=== PATIENT | female | born 2000 | race Caucasian/White ===

== ENCOUNTER 2025-07-26 20:48 | Emergency (ER) | payer OTHER, SELFPAY ==
--- NOTE | ~2025-07-26 | XR_ITS ---
CLINICAL HISTORY: constipation w abdominal pain 1 view abdomen Comparison: None provided Findings: Large volume stool burden. No pneumatosis. No abnormal calcifications. IUD projects over the pelvis. No acute fractures. IMPRESSION: Nonobstructive bowel gas pattern. Large stool burden in the colon. This document has been electronically signed by: Pat Hyman MD on 07/26/2025 21:40:55
[2025-07-26 20:57] VITALS: BP 131/76; PULSE 102; RESP 16; TEMP 36.4; O2SAT 100; BMI 19.4
[2025-07-26 22:02] LABS: MANUAL DIFF FLAG NO
[2025-07-26 22:03] LABS: Hematocrit 37.4 % (37.0-47.0); Hemoglobin 12.9 g/dl (12.0-16.0); Imm Gran Abs Auto 0.04 X10*3/uL (0.00-0.03); Imm Gran Pct Auto 0.3 % (0.0-0.4); Lymphocytes Absolute Auto 3.4 X10*3/uL (1.2-4.9); Mean Corpuscular HGB Conc 34.5 g/dl (31.0-35.0); Mean Corpuscular Hemoglobin 31.2 pg (27.0-33.0); Mean Corpuscular Volume 90.3 fL (80.0-98.0); NRBC Abs Auto 0.000 X10*3/uL (0.0-0.012); NRBC Pct Auto 0.0 /100WBC (0.0-0.2); Platelet Count 292 X10*3/uL (160-400); Red Blood Count 4.14 X10*6/uL (4.20-5.50); White Blood Count 12.4 X10*3/uL (4.8-10.8)
[2025-07-26 22:04] LABS: Appearance Urine Clear; Glucose Urine UA Negative (Negative); PH 6.5 (5.0-9.0); Specific Gravity - Urine 1.015 (1.005-1.025)
[2025-07-26 22:09] LABS: UPreg QC Valid YES
[2025-07-26 22:22] LABS: Alanine Aminotransferase 21 U/L (0-31); Albumin Level 4.3 g/dL (3.5-5.0); Alkaline Phosphatase 60 U/L (39-117); Anion Gap 9 (12-20); Aspartate Amino Transferase 28 U/L (5-31); Blood Urea Nitrogen 13 mg/dL (9-16); Calcium 8.7 mg/dL (8.4-10.2); Carbon Dioxide 24 mmol/L (22-29); Chloride 109 mmol/L (96-108); Creatinine Clr Calc Pharmacy 74.7; Estimated Glomerular Filt Rate > 60; Lipase 30 U/L (8-78); Potassium 3.9 mmol/L (3.3-5.1); Sodium 138 mmol/L (135-145); Total Protein 6.9 g/dL (6.5-8.0)
[2025-07-27 04:21] VITALS: BP 107/63; PULSE 66; RESP 16; TEMP 36.8; O2SAT 99
--- OUTSIDE RECORDS SUMMARY | 2025-07-27 05:35 | XMS_ITS | Clinical Summary ---
Author Organization [address] Address [address] [place] [address] Phone Care Team Providers Care Hand Sprayer Name Role Phone Pcp, Does Not Have A Primary Care Provider Unava ilable Allergies No known active allergies Medications naloxone (NARCAN) 4 mg/actuation nasal spray Use 1 spray in 1 nostril for suspected opioid overdose. May repeat in 2 minutes in other nostril with new device if minimal or no response. Dispensed from Emergency Department 2 each 4 Active loperamide (IMODIUM) 2 mg capsule Take 1 capsule (2 mg total) by mouth 4 (four) times daily as needed for diarrhea for up to 15 doses. 15 capsule 4 Active naloxone (NARCAN) 4 mg/actuation nasal spray Use 1 spray in 1 nostril for suspected opioid overdose. May repeat in 2 minutes in other nostril with new device if minimal or no response. 2 each 4 Active gabapentin (NEURONTIN) 600 mg tablet Take 1 tablet (600 mg total) by mouth 3 (three) times daily with meals for 7 days. 21 tablet 4 Active Active Problems Problem Noted Date Diagnosed Date Benzodiazepine withdrawal without complication ( HC Code) 06/20/2024 Methamphetamine abuse 06/11/2024 Crack cocaine use 06/11/2024 Suicidal ideation 12/26/2021 Substance induced mood disorder (HC Code) 2020 Alcohol abuse 11/28/2020 Polysubstance abuse 11/28/2020 Cannabis abuse 11/28/2020 Anxiety 04/20/2020 Family History Medical History Relation Name Comments No Known Problems Father No Known Problems Mother Suicide Attempts Neg Hx Relation Name Status Comments Father Alive Mother Alive Social History Tobacco Use Types Packs/Day Years Used Date Smoking Tobacco: Some Days Cigarettes Smokeless Tobacco: Current Tobacco Cessation:Ready to Q uit: No; Counseling Given: Yes Alcohol Use Standard Drinks/Week Comments Yes 0 (1 standard drink = 0.6 oz pur e alcohol) regular use [facility] Utilities Answer Date Recorded In the past 12 months has e electric, gas, oil, or water company threatened to shut off services in your home? No 01/29/2024 Exercise Vital Sign Answer Date Recorde d On average, how many days pe r week do you engage in moderate to strenuous exercise (like a brisk walk)? 1 day Minutes of Exercise per Session Not on file 11/28/2020 Hunger Vital Sign Answer Date Recorded Within the past 12 months, y ou worried that your food would run out before you got the money to buy more. Never true 01/29/20 24 Within the past 12 months, t he food you bought just didn't last and you didn't have money to get more. Never true 01/29/2024 PRAPARE - Transportation Answer Date Re corded In the past 12 months, has l ack of transportation kept you from medical appointments or from getting medications? No 01/16 In the past 12 months, has l ack of transportation kept you from meetings, work, or from getting things needed for daily living? No 01/29/2024 Housing Stability Answer Date Recorded What is your living situation today? I have a [facility] place to live 01/29/2024 Housing Stability Not on file 01/29/2024 Interpersonal Safety Answer Date Record ed Is there anyone in your life that is hurting or threatening you in anyway? no 06/20/2024 Physical Indicators of Abuse No evidence of phys ical abuse 06/20/2024 Comments No Sex and Gender Information Value Date Recorded Sex Assigned at Female 02/05/2024 10:33 PM EDT Legal Sex Female 9:42 AM EST Gender Identity Female 02/05/2024 10:33 PM EDT Sexual Orientation Not on file Occupation Industry Job Start Date Job End Date student Not on file Not on file Not on file Last Filed Vital Signs Vital Sign Reading Time Taken Comments Blood Pressure 105/71 06/22/2024 8:40 AM EST Pulse 52 06/22/2024 8:40 AM EST Temperature 36.6 C (97.9 F) 06/22/2024 8:14 AM EST Respiratory Rate 16 06/22/2024 8:14 AM EST Oxygen Saturation 100% 06/22/2024 8:39 AM EST Inhaled Oxygen Concentration - - Weight 52.2 kg (115 lb) 05/02/2024 2:13 PM EDT Height 160 cm (5' 3 ) 05/02/2024 2:13 PM EDT Body Mass Index 20.37 05/02/2024 2:13 PM EDT Plan of Treatment Health Maintenance Due Date Last Done Comments Pneumococcal Vaccine (2 - 49 years) (1 of 2 - PCV) 12/05/2019 03/29/2002, 08/21/2001, 05/04/2001, Additional history exists Chlamydia screening 04/20/2021 04/20/2020 Influenza vaccine 03/18/2025 08/23/2020 Covid-19 vaccine series (2024- season) 2025 10/19/2021, 03/13/2021, 02/20/2021 Cervical cancer screening 12/15/2026 12/16/2023 DTaP/TDaP Vaccines (8 - Td or Tdap) 08/16/2030 08/16/2020, 04/24/2011, 02/26/2006, Additional history exists Tetanus adult (Td q 10,TDAP once) 08/16/2030 08/16/2020, 04/24/2011, 02/26/2006, Additional history exists RSV Immunization (1 - 1-dose 75+ series) 12/05/2075 Hepatitis B vaccine series Completed 08/03, 03/03/2001, 01/06/2001 IPV Vaccines Completed 02/26/2005, 08/18, 05/04/2001, Additional history exists MMR Vaccines Completed 02/26/2005, 12/09/2001 Varicella Vaccines Completed 03/17/2007, 12/09/2001 Hepatitis A Vaccines Completed 05/19/2013, 08/12/20 12 Meningococcal Vaccine Completed 12/09/2016, 012 HPV vaccine series Completed 07/18/2017, 0 03/18/2017, 12/21/2016 Meningococcal B Vaccine Completed 03/17/2019, 01/29 HIV screening Completed 01/29/2024 Hepatitis C screening Completed 06/22/2024 HIB Vaccines Aged Out No longer eligi ble based on patient's age to complete this topic Rotavirus Vaccines Aged Out No longer eligible based on patient's age to complete this topic Procedures Procedure Name Priority Date/Time Associated Diagnosis Comments HEPATITIS C AB WITH REFLEX TO HCV PCR Routine 06/22/2024 5:39 AM EST HIV-1/HIV-2 ANTIBODY/ANTIGEN SCREEN W/REFLEX ([facility]) STAT 01/29/2024 12:37 PM EDT CHLAMYDIA TRACHOMATIS, NAAT (LAB ORDER ONLY) ([facility]) Routine 04/20/2020 10:22 AM EDT Abnormal uterine bleeding (AUB) from Last 3 Months or Most Recently Relevant to Health Maintenance Results * Hepatitis C Ab with reflex to HCV PCR (06/22/2024 5:39 AM EST) Hepatitis C Antibody Negative Negative 06/22/2024 10:39 AM EST [facility] DEPARTMENT OF LABORATORY MEDICINE Comment:A negative result do es not exclude HCV infection, since antibodies are not detectable for 4-8 weeks after initial infection, or may not develop in compromised hosts. In high-risk individuals, repeat antibody testing in 2 months and/or HCV RNA PCR should be considered. Blood Venipuncture / Unknown 06/22/2024 5:39 AM EST 06/22/2024 6:46 AM EST us Laila GUEVARA LAB BLOOD ORDERABLES Final Re sult [facility] DEPARTMENT OF LABORATORY MEDICINE [address] [place] [address], [facility] [phone] * Automated HIV-1/HIV-2 antibody/antigen screen w/reflex ([facility]) (01/29/2024 12:37 PM EDT) HIV 1 and 2 Antibody/Antigen Screen Negative Negative 01/29/2024 8:10 PM EDT [facility] DEPARTMENT OF LABORATORY MEDICINE Comment:Interpretation: This specimen is HIV antibody and antigen negative. A negative test does not exclude the possibility of infection with HIV. If suspicion is high, submit a sample for HIV nucleic acid testing. Negative results may be seen in early infection, advanced AIDS and agammaglobulinemic patients, among others. Antiretroviral drugs taken for treatment and prophylaxis may limit the ability of diagnostic tests to detect HIV infection. The performance of this assay has not been clinically validated in patients less than 2 years old. Blood Venipuncture / Unknown 01/29/2024 12:37 PM EDT 01/29/2024 12:43 PM EDT us Eric Berg MD LAB BLOOD ORDERABLES Final Resul t [facility] DEPARTMENT OF LABORATORY MEDICINE [address] [place] [address] * Chlamydia trachomatis, NAAT ([facility]) (04/20/2020 10:22 AM EDT) Chlamydia DNA Probe Negative Negative 04/21/2020 12:22 PM EDT [facility] DEPARTMENT OF PATHOLOGY Comment:The Aptima Combo2 As say is not intended for the evaluation of suspected sexual abuse or for other medico-legal indications. Culture URINE SPECIMEN / Unknown Collection / Unknown 04/20/2020 10:22 AM EDT 04/20/2020 5:34 PM EDT us Yue Couch MD MICROBIOLOGY - GENERAL V[place]K [place] Final Result [facility] DEPARTMENT OF PATHOLOGY [address] [place] [address] from Last 3 Months or Most Recently Relevant to Health Maintenance Insurance [place] [address] [place] [address] [place] [address] [place] [address] [place] [address] [place] [address] [place] [address] [employer] Member Subscriber Plan / Payer (Ef fective 2017-Present) Name:Ruthann Bah Relation to Subscriber:Child Name:LANDON BAH (Home) Address: [address] [place] [address] [place] [address] Payer ID:[id number] Type:Not on file Address: [place] [phone] [employer] Advance Directives * Full Code (Latest Code Status on File) Date Activated Date Inactivated Comments 06/20/2024 6:55 PM 06/22/2024 1:29 PM Question Answer Comments With Whom was the Code Status Discussed? Patient Care Teams Hand Sprayer Relationship Specialty Start Date End Date Pcp, Does Not Have A PCP - General 02/09/24
--- NOTE | 2025-07-27 05:37 | ED_ITS ---
HPI - Abdominal Pain General Chief Complaint: Abdominal Pain Stated Complaint: abdominal pain Time Seen by Provider: 07/27/25 05:17 Source: patient and old records reviewed Mode of arrival: ambulatory Limitations: no limitations History of Present Illness ED Provider: RENEE MURRAY narrative: 24-year-old female with past medical history of constipation for the last several months she has had no other past medical history no prior surgeries. She reports she does have headache so she does take Motrin fairly regularly. She notes for the last week she has had upper abdominal pain and constipation after eating. She has nausea and vomiting a few days ago. She really notes she has not been eating or drinking well. She has had a decreased appetite. She has had weight loss but does not quantify it. She has never been seen for this before. She has been waiting in our waiting room for several hours she has had labs and an x-ray that shows constipation. She states she has never taken any medication [id number] for constipation but takes Tums. She has never seen a GI doctor. She has not had any fevers. She has not report any GI bleed symptoms. MD elicited complaint: abdominal pain Pertinent past history: constipation Onset (ago): week(s) (1) Pain Consistency: colicky Location: epigastric and periumbilical Severity: moderate Quality: stabbing and fullness Radiation: none Migration to: no migration Exacerbating factors: eating Relieving factors: nothing Context: other Associated symptoms: nausea, vomiting and constipation Related Data Previous Rx's ?Medication ?Instructions ?Recorded lactulose 10 gram/15 mL oral 20 g (30 mL) PO DAILY PRN laxative 07/27/25 solution effect #1,200 mL omeprazole 20 mg capsule,delayed 20 mg PO BID 30 days #60 caps 07/27/25 release ondansetron 4 mg disintegrating 4 mg PO Q8H PRN nausea and 07/27/25 tablet vomiting #20 tabs sennosides 8.6 mg capsule (senna) 8.6 mg PO BEDTIME SD N constipation 07/27/25 #30 caps Allergies Allergy/AdvReac Type Severity Reaction Status Date / Time No Known Allergies Allergy Verified 07/26/25 21:02 Review of Systems Review of Systems Constitutional : No Weight loss, No Fever, No Chills ENT/Mouth : No sore throat, No Rhinorrhea Eyes: No Swelling, No Redness Cardiovascular : No Chest Pain, No SOB, NoEdema Respiratory : No Cough, No Sputum, No Wheezing Gastrointestinal : Positive Nausea, Positive Vomiting, no Diarrhea, positive abdominal Pain, No Hematochezia, No Melena Genitourinary : No Dysuria, No Urinary Frequency, No Hematuria, No Urgency Musculoskeletal : No joint pain, No Myalgias, No Joint Swelling Skin : No Skin Lesions, No rash All other systems reviewed and are negative. Yes all other systems are reviewed and are negative [facility] Past Medical History Attestation statement: The following information was validated with the patient. Source: old records reviewed Medical History Constipation Social History Social History (Updated 07/27/25 @ 06:25 by Rosita Tarango DO) Patient Tobacco Use Status: Tobacco use Unknown Physical Exam ED Vital Signs: Vital Signs - 24 hr 07/26/25 20:57 07/27/25 04:21 07/27/25 06:14 Temperature 97.6 F 98.2 F 98.2 F Pulse Rate 102 H 66 66 Respiratory Rate 16 16 16 Blood Pressure 131/76 107/63 107/63 Pulse Oximetry 100 99 99 Oxygen Delivery Method Room Air Room Air Room Air BMI result Body Mass Index 19.4 Appearance: Alert. Oriented X3. No acute distress. Eyes: Pupils equal, round and reactive to light. ENT: Pharynx normal. Neck: Normal inspection. Neck supple. CVS: Normal heart rate and rhythm. Pulses normal. Respiratory: No respiratory distress. Breath sounds normal. Abdomen: Soft But she has some upper abdominal tenderness to palpation, she has no rebound, no guarding Skin: Skin warm and dry. Normal skin color. Extremities: No lower extremity edema. Neuro: Oriented X 3. No motor deficit. No sensory deficit. Medical Decision Making Medical Decision Making MDM Narrative: 24-year-old female with no significant past medical history, as well as no prior surgical interventions. She presents with upper abdominal pain as well as lack of appetite, nausea, pain worse with eating. She also reports constipation but has not tried any [id number] medications. At this time I am going to obtain labs and KUB, I discussed a biliary colic exam and getting formal ultrasound. But she declines and wants to go home and attempt to medications. She was advised to eat a low-fat diet. She was told she had come back any time if she wanted to proceed with ultrasound of the gallbladder.. She is at risk for both gastritis, peptic ulcer disease given her ibuprofen use I asked her to abstain from taking this but she is okay to take Tylenol. On exam her abdomen is not acute. Differential Diagnosis Differential Diagnoses: The differential diagnosis associated with the presentation includes PUD, gastritis, pancreatitis, biliary colic, constipation Admission/Observation Consideration of admission/observation: Escalation of care including admission/observation considered at this time her workup is reassuring and she declines waiting for further imaging of the gallbladder, she can be discharged home with supportive medications for gastritis as well as constipation she was given strict precautions to return Lab Data MDM Lab Attestation statement: I reviewed the patient's lab results. 07/26/25 21:57 07/26/25 21:57 Labs: Lab Results 07/26/25 Range/Units 21:57 WBC 12.4 H (4.8-10.8) X10*3/uL RBC 4.14 L (4.20-5.50) X10*6/uL Hgb 12.9 (12.0-16.0) g/dl Hct 37.4 (37.0-47.0) % MCV 90.3 (80.0-98.0) fL MCH 31.2 (27.0-33.0) pg MCHC 34.5 (31.0-35.0) g/dl RDW 11.8 (11.0-16.0) % Plt Count 292 (160-400) X10*3/uL MPV 10.0 (9.4-12.3) fL Immature Gran % (Auto) 0.3 (0.0-0.4) % Neut % (Auto) 65.2 (45-73) % Lymph % (Auto) 27.6 (20-40) % [place] % (Auto) 5.5 (2-11) % Eos % (Auto) 0.9 (0-4) % Baso % (Auto) 0.5 (0-2) % Lymph # (Auto) 3.4 (1.2-4.9) X10*3/uL [place] # (Auto) 0.7 (0.1-1.2) X10*3/uL Eos # (Auto) 0.1 (0.0-0.4) X10*3/uL Baso # (Auto) 0.1 (0.0-0.2) X10*3/uL Abs Immat Gran (auto) 0.04 H (0.00-0.03) X10*3/uL Absolute Neuts (auto) 8.1 (2.0-8.3) x10*3/uL Absolute Nucleated RBC 0.000 (0.0-0.012) X10*3/uL Nucleated RBC % (auto) 0.0 (0.0-0.2) /100WBC Sodium 138 (135-145) mmol/L Potassium 3.9 (3.3-5.1) mmol/L Chloride 109 H (96-108) mmol/L Carbon Dioxide 24 (22-29) mmol/L Anion Gap 9 L (12-20) BUN 13 (9-16) mg/dL Creatinine 0.91 (0.5-1.4) mg/dL Estim Creat Clear Calc 74.7 Estimated GFR > 60 Random Glucose 77 (60-115) mg/dL Calcium 8.7 (8.4-10.2) mg/dL Total Bilirubin 0.3 (0.0-1.0) mg/dL Direct Bilirubin 0.1 (0.0-0.5) mg/dL AST 28 (5-31) U/L ALT 21 (0-31) U/L Alkaline Phosphatase 60 (39-117) U/L Total Protein 6.9 (6.5-8.0) g/dL Albumin 4.3 (3.5-5.0) g/dL Lipase 30 (8-78) U/L Urine Color Yellow Urine Appearance Clear Urine pH 6.5 (5.0-9.0) Ur Specific [place] 1.015 (1.005-1.025) Urine Protein Negative (Neg-Trace) mg/dL Urine Glucose (UA) Negative (Negative) mg/dL Urine Ketones Negative (Negative) mg/dL Urine Blood Negative (Negative) Urine Nitrite Negative (Negative) Ur Leukocyte Esterase Negative (Negative) Urine Test NEGATIVE (NEGATIVE) Independent Interpretation I performed an independent interpretation of an: Plain X-Ray ( large stool burden) Radiology Impression Discussion of test interpretation with radiology: I have reviewed the radiologist's reading. External Record Review External record reviewed: Outpatient record Prescription Management I considered prescription management with: Other Medications Administered Discontinued Medications Generic Name Dose Route Start Last Admin Trade Name Freq PRN Reason Stop Dose Admin Omeprazole 20 mg 07/27/25 05:35 07/27/25 06:09 Omeprazole 20 Mg Capsule.Dr PO 07/27/25 05:36 20 mg ONCE ONE Administration Ondansetron HCl 4 mg 07/27/25 05:35 07/27/25 06:09 Ondansetron Odt 4 Mg Tab.Rapdis TRANSLINGU 07/27/25 05:36 4 mg ONCE ONE Administration Discharge Plan Discharge Clinical Impression: Abdominal pain, Constipation Patient Disposition: Home, Self-Care Instructions: Constipation (ED), Abdominal Pain (ED) Additional Instructions: At this time as discussed your labs are reassuring, your x-ray of her abdomen showed a large amount of stool As discussed if these medications do not work I think you should get further workup of your gallbladder It is okay to take Tylenol for pain krpr-[id number] but please avoid Motrin, ibuprofen, Aleve, Naprosyn Rest and hydrated return for any worsening symptoms or concerns You she had a bland diet avoid spicy food, greasy food, fatty food, eat very healthy for the next few weeks Prescriptions: New omeprazole 20 mg capsule,delayed release(DR/EC) 20 mg PO BID 30 Days Qty: 60 0RF ondansetron 4 mg tablet,disintegrating 4 mg PO Q8H PRN (Reason: nausea and vomiting) Qty: 20 0RF senna 8.6 mg capsule 8.6 mg PO BEDTIME PRN (Reason: constipation) Qty: 30 0RF lactulose 10 gram/15 mL solution 20 g PO DAILY PRN (Reason: laxative effect) Qty: 1200 0RF Stand Alone Forms: Work/School Release Interventions: ED Discharge Assessment Last Done: 07/27/25 06:14 Discharge Date/Time: 07/27/25 06:14 Print Language: Indonesian
--- OUTSIDE RECORDS SUMMARY | 2025-07-27 05:37 | XMS_ITS | Clinical Summary ---
Author Organization [facility] Address [address] [place] [address] Care Team Providers Care Switch Inspector Name Role Phone Unavailable Primary Care Provider Unavailabl e Allergies No known active allergies Medications baclofen (LIORESAL) 10 MG tablet Take 10 mg by mouth. 09/08/2023 Active buprenorphine-n aloxone (SUBOXONE) 2-0.5 mg per SL tablet PLACE 1 TABLET UNDER THE TONGUE DAILY AND ALLOW TO DISSOLVE Active buPROPion (WELLBUTRIN XL) 300 MG 24 hr tablet Take 300 mg by mouth every morning. 04/27/2024 Active Social History Tobacco Use Types Packs/Day Years Used Date Smoking Tobacco: Never Passive Smoke Exposure: Never Smokeless Tobacco: Never Tobacco Cessation:Counseling Given: Not Answered Comments Unknown Sex and Gender Information Value Date Recorded Sex Assigned at Female 05/03/2024 3:54 PM EDT Legal Sex Female 3:53 PM EDT Gender Identity Female 05/03/2024 3:54 PM EDT Sexual Orientation Choose not to disclose 2023 3:54 PM EDT Last Filed Vital Signs Vital Sign Reading Time Taken Comments Blood Pressure - - Pulse - - Temperature - - Respiratory Rate - - Oxygen Saturation - - Inhaled Oxygen Concentration - - Weight 52.2 kg (115 lb) 05/05/2024 2:20 PM EDT Height 160 cm (5' 3 ) 05/05/2024 2:20 PM EDT Body Mass Index 20.37 05/05/2024 2:20 PM EDT Plan of Treatment Health Maintenance Due Date Last Done Comments Hepatitis C Virus Screening 2000 HPV Vaccines (1 - 3-dose series) 12/05/2015 DTaP/Tdap/Td Vaccines (1 - Tdap) 12/05/2019 Hepatitis B Vaccines (1 of 3 - 19+ 3-dose series) 12/05/2019 Influenza Vaccine 03/18/2025 COVID-19 Vaccine (2 - 2024-2 6 season) 2025 10/19/2021 Pap Smear (Ages 21-65) 12/15/2026 12/16/2023 HIV Screening Completed 01/29/2024, 01/29/2024 Pneumococcal Vaccine: Pediatric (0-5 Years) and At-Risk Patients (6 to 49 Years) Aged Out No longer eligible b ased on patient's age to complete this topic Procedures Procedure Name Priority Date/Time Associated Diagnosis Comments THINPREP PAP TEST (DIRECTOR VOICE) WITH HPV REFLEX, GC/CT Routine 12/16/2023 12:00 AM EDT from Last 3 Months or Most Recently Relevant to Health Maintenance Results * (ABNORMAL) ThinPrep Pap Test ([employer]) with HPV Reflex, GC/CT (12/16/2023 12:00 AM EDT) Report Report(A) [facility] Comment: Final Gynecological Cytology Report ThinPrep Pap Test with HPV Reflex, GC/Chlamydia SPECIMEN ADEQUACY: SATISFACTORY FOR EVALUATION; ENDOCERVICAL/TRANSFORMATION ZONE COMPONENT PRESENT. INTERPRETATION: ATYPICAL SQUAMOUS CELLS OF UNDETERMINED SIGNIFICANCE. Electronically Signed: Joyce Conteh (ASCP) Electronically Signed: Espinoza Pimentel MD CLINICAL INFORMATION: LMP: NG Clinical History: NG Biopsy Date: NG Specimen Source: Cervix, Endocervix Previous Pap Date: NG CPT Codes: 91546, 81223 ICD Codes: Z12.4 12/16/2023 12/17/2023 4:1 8 AM EDT us Rose Danielsmartina CNM LAB AMB PATH/CYTO ORDERABLES Final Result Performing Organization Address City/State/[facility] Co de Phone Number [facility] [address], [place] from Last 3 Months or Most Recently Relevant to Health Maintenance [place] [address] [facility]
--- OUTSIDE RECORDS SUMMARY | 2025-07-27 05:37 | XMS_ITS | Clinical Summary ---
Author Organization [facility] Address [address] [place] [id number] Care Team Providers Care Security Professional Name Role Phone Md, Unknown Primary Care Provider Unavailabl e Allergies No known active allergies Medications cloNIDine (Catapres) 0.1 mg tablet 08/07/2022 Active hydrOXYzine HCL (ATARAX) 50 mg tablet 08/13/2022 Active traZODone (Desyrel) 50 mg tablet 08/13/2022 Active tretinoin (RETIN-A) 0.025 % cream 05/03/2022 Active buPROPion (Wellbutrin) 75 mg tablet Take by mouth 2 (two) times a day. Active Social History Tobacco Use Types Packs/Day Years Used Date Smoking Tobacco: Every Day Cigarettes Tobacco Cessation:Ready to Q uit: Not Asked; Counseling Given: Not Answered Alcohol Use Standard Drinks/Week Comments Not Asked 0 (1 standard drink = 0.6 oz pur e alcohol) in a sober house. 1 month. Comments Unknown Sex and Gender Information Value Date Recorded Sex Assigned at Not on file Legal Sex Female 12:17 PM EST Gender Identity Not on file Sexual Orientation Not on file Last Filed Vital Signs Vital Sign Reading Time Taken Comments Blood Pressure 121/82 10/14/2022 12:38 PM EST Pulse 84 10/14/2022 12:38 PM EST Temperature 36.3 C (97.3 F) 10/14/2022 12:38 PM EST Respiratory Rate - - Oxygen Saturation 97% 10/14/2022 12:38 PM EST Inhaled Oxygen Concentration - - Weight 54.9 kg (121 lb) 10/14/2022 12:38 PM EST Height 160 cm (5' 3 ) 10/14/2022 12:38 PM EST Body Mass Index 21.43 10/14/2022 12:38 PM EST Plan of Treatment Health Maintenance Due Date Last Done Comments Hepatitis C Screening 2000 HPV Vaccines (1 - 3-dose series) 12/05/2015 Chlamydia Screening 2016 Annual Physical Exam 2018 Pneumococcal Vaccine: Peds ( 0 to 5 Yrs) and At-Risk Pts (6 to 49 Yrs) (1 of 2 - PCV) 12/05/2019 Tdap and Td Vaccines Adult 12/05/2019 Pap Smear 2021 COVID-19 Vaccine (2 - 2024-2 6 season) 2025 10/19/2021 Influenza Vaccine (#1) 2025 HIB Vaccines Aged Out No longer eligi ble based on patient's age to complete this topic Hepatitis A Vaccines Aged Out No long er eligible based on patient's age to complete this topic IPV Vaccines Aged Out No longer eligi ble based on patient's age to complete this topic Meningococcal Vaccine Aged Out No gary carmen eligible based on patient's age to complete this topic RSV <20 Months Aged Out No longer rashida gible based on patient's age to complete this topic Care Teams Security Professional Relationship Specialty Start Date End Date , Unknown 1 Dont Change PCP - General 10/14/22
[2025-07-27 06:14] VITALS: BP 107/63; PULSE 66; RESP 16; TEMP 36.8; O2SAT 99
== END 2025-07-27 06:14 | disposition home or self-care (01) ==
PROVIDERS: Emergency Provider Emergency Medicine; PCP Family Medicine
DX: K59.00 Constipation, unspecified (principal); R10.10 Upper abdominal pain, unspecified
CPT/HCPCS: 36415; 74018; 80048; 80076; 81003; 81025; 83690; 85025; 99282; 99283

== ENCOUNTER → 2025-07-26 21:13 | Outpatient (BNV) | payer OTHER, SELFPAY | PROVIDERS: PCP Family Medicine; Visit Provider Student in an Organized Health Care Education/Training Program | DX: K59.00 Constipation, unspecified (principal) | CPT/HCPCS: 74018 ==

== ENCOUNTER 2025-07-28 13:12 | Emergency (ER) | payer OTHER, SELFPAY ==
--- NOTE | ~2025-07-28 | US_ITS ---
EXAMINATION: US ABDOMEN LIMITED CLINICAL INFORMATION: Right upper quadrant abdominal pain.. COMPARISON: None available. TECHNIQUE: Real-time imaging of the right upper quadrant abdominal viscera. FINDINGS: PANCREAS: Visualized portions are unremarkable. LIVER: The liver is normal in size. Right Hepatic lobe measures 13.9 cm. The liver contour is normal. Parenchymal echogenicity is normal. No focal hepatic lesion. There is no intrahepatic biliary duct dilatation seen. GALLBLADDER: The gallbladder is physiologically distended without evidence of stones, sludge, polyps, wall thickening or pericholecystic fluid. COMMON BILE DUCT: Normal in caliber measuring 0.2 cm in diameter. RIGHT KIDNEY: No hydronephrosis. No renal calculi or focal parenchymal lesions. The kidney measures 10.9 cm in maximum dimension. FREE FLUID: None. US/US abdomen limited IMPRESSION: Normal right upper quadrant abdominal ultrasound Electronically signed by: Royal Nascimento MD 07/28/2025 03:24 PM [facility]
[2025-07-28 13:56] VITALS: BP 125/64; PULSE 63; RESP 16; TEMP 36.8; O2SAT 99; BMI 19.2
--- NOTE | 2025-07-28 13:56 | ED_ITS ---
HPI - Abdominal Pain General Chief Complaint: Abdominal Pain Stated Complaint: Stomach Pain Time Seen by Provider: 07/28/25 21:39 Source: patient Limitations: no limitations History of Present Illness ED Provider: Lexus Nicholas PA-C HPI narrative: 24-year-old female with a history of prior opiate use disorder on Suboxone, chronic constipation who presents with the abdominal pain. Patient states she has been constipated for a week, she was seen in the emergency department a day and a half ago, she was found to be considerably constipated, she was sent with the home care instructions. Patient states she is having minimal bowel movement, despite taking the prescribed lactulose and senna. Denies distention, inability to pass flatus, active vomiting. Patient states she does become nauseous at times. Patient also states she was told to return to the emergency room if her symptoms persisted, that she may require additional assessment for potential biliary colic. Related Data Previous Rx's ?Medication ?Instructions ?Recorded lactulose 10 gram/15 mL oral 20 g (30 mL) PO DAILY PRN laxative 07/27/25 solution effect #1,200 mL omeprazole 20 mg capsule,delayed 20 mg PO BID 30 days #60 caps 07/27/25 release ondansetron 4 mg disintegrating 4 mg PO Q8H PRN nausea and 07/27/25 tablet vomiting #20 tabs sennosides 8.6 mg capsule (senna) 8.6 mg PO BEDTIME CA N constipation 07/27/25 #30 caps Allergies Allergy/AdvReac Type Severity Reaction Status Date / Time No Known Allergies Allergy Verified 07/28/25 13:57 Review of Systems Review of Systems Yes all other systems are reviewed and are negative Constitutional: Denies fatigue and Denies fever(s) Cardiovascular: Denies chest pain and Denies dyspnea Respiratory: Denies dyspnea Gastrointestinal: Reports abdominal pain, Reports constipation, Denies diarrhea, Reports nausea and Denies vomiting Endocrine: Denies fatigue PMFSH Past Medical History Attestation statement: The following information was validated with the patient. Medical History Constipation Social History Social History (Updated 07/27/25 @ 06:25 by Rosita Tarango DO) Patient Tobacco Use Status: Tobacco use Unknown Advance Directives: No Advance Directives Information Provided: No Physical Exam ED Vital Signs: Vital Signs - 24 hr 07/28/25 13:56 07/28/25 21:58 07/28/25 22:26 Temperature 98.3 F 98.9 F 98.9 F Pulse Rate 63 94 94 Respiratory Rate 16 14 14 Blood Pressure 125/64 106/66 106/66 Pulse Oximetry 99 98 98 Oxygen Delivery Method Room Air Room Air Room Air BMI result Body Mass Index 19.2 Const Other: Alert well-appearing Orientation/consciousness: patient oriented x3 Resp Effort & Inspection: normal respiratory effort Cardio Other: Normal peripheral perfusion GI Other: Soft, nondistended Skin Other: Warm dry no rash Neuro General: patient oriented x3, gait normal, no focal motor deficits and CN's II- XI intact bilaterally Psych Other: Cooperative Course Course Course Narrative: This is an RME: Additional HPI, ROS, PE not included below will be deferred to primary provider. RME assessment and note performed by: Saida Duarte PA-C This is a 19-yaow-wrh-female who presents to the ER with a complaint of abdominal pain for several months, worsening over the last week. Reports that she has been unable to eat food due to pain. Reports that her stools are concerning looking , reporting that they are hard, mucousy, black/orange in there. Seen here yesterday, showed constipation. She did not stay for an ultrasound of her gallbladder. Patient points to right upper quadrant pain. Abdomen is soft. Plan: Repeat labs, ultrasound, further ER evaluation needed. Medical Decision Making Medical Decision Making MDM Narrative: 24-year-old female with a history of prior opiate use disorder on Suboxone, chronic constipation who presents with the abdominal pain. Patient states she has been constipated for a week, she was seen in the emergency department a day and a half ago, she was found to be considerably constipated, she was sent with the home care instructions. Patient states she is having minimal bowel movement, despite taking the prescribed lactulose and senna. Denies distention, inability to pass flatus, active vomiting. Patient states she does become nauseous at times. Patient also states she was told to return to the emergency room if her symptoms persisted, that she may require additional assessment for potential biliary colic. Problem: Opiate use disorder, constipation History: Per patient I have considered the following differential diagnoses: Constipation, bowel obstruction, fecal impaction, biliary colic, cholecystitis, gastritis/GERD Plan: Screening labs including LFTs lipase and an ultrasound of the right upper quadrant obtained from triage, everything is normal. Again she is noted to be considerably constipated, I am suggesting a more aggressive bowel regimen. She verbalizes understanding. To note she is not having obstructive symptoms, CT scan not warranted. I have independently reviewed the following tests: Labs: No leukocytosis, not anemic, no electrolyte abnormality, LFTs are not elevated Ultrasound right upper quadrant: US/US abdomen limited IMPRESSION: Normal right upper quadrant abdominal ultrasound Differential Diagnosis Differential Diagnoses: The differential diagnosis associated with the presentation includes See MDM Admission/Observation Consideration of admission/observation: Escalation of care including admission/observation considered Not applicable Lab Data MDM Lab Attestation statement: I reviewed the patient's lab results. 07/28/25 14:17 07/28/25 14:16 Labs: Lab Results 07/28/25 07/28/25 Range/Units 14:16 14:17 WBC 9.9 (4.8-10.8) X10*3/uL RBC 4.23 (4.20-5.50) X10*6/uL Hgb 13.4 (12.0-16.0) g/dl Hct 38.8 (37.0-47.0) % MCV 91.7 (80.0-98.0) fL MCH 31.7 (27.0-33.0) pg MCHC 34.5 (31.0-35.0) g/dl RDW 11.8 (11.0-16.0) % Plt Count 276 (160-400) X10*3/uL MPV 10.4 (9.4-12.3) fL Immature Gran % (Auto) 0.2 (0.0-0.4) % Neut % (Auto) 72.1 (45-73) % Lymph % (Auto) 22.0 (20-40) % Alexander % (Auto) 4.7 (2-11) % Eos % (Auto) 0.4 (0-4) % Baso % (Auto) 0.6 (0-2) % Lymph # (Auto) 2.2 (1.2-4.9) X10*3/uL Alexander # (Auto) 0.5 (0.1-1.2) X10*3/uL Eos # (Auto) 0.0 (0.0-0.4) X10*3/uL Baso # (Auto) 0.1 (0.0-0.2) X10*3/uL Abs Immat Gran (auto) 0.02 (0.00-0.03) X10*3/uL Absolute Neuts (auto) 7.1 (2.0-8.3) x10*3/uL Absolute Nucleated RBC 0.000 (0.0-0.012) X10*3/uL Nucleated RBC % (auto) 0.0 (0.0-0.2) /100WBC Sodium 138 (135-145) mmol/L Potassium 4.2 (3.3-5.1) mmol/L Chloride 108 (96-108) mmol/L Carbon Dioxide 26 (22-29) mmol/L Anion Gap 8 L (12-20) BUN 8 L (9-16) mg/dL Creatinine 0.97 (0.5-1.4) mg/dL Estim Creat Clear Calc 69.4 Estimated GFR > 60 Random Glucose 110 (60-115) mg/dL Calcium 8.6 (8.4-10.2) mg/dL Magnesium 2.0 (1.6-2.6) mg/dL Total Bilirubin 0.6 (0.0-1.0) mg/dL Direct Bilirubin 0.2 (0.0-0.5) mg/dL AST 17 (5-31) U/L ALT 18 (0-31) U/L Alkaline Phosphatase 59 (39-117) U/L Total Protein 6.6 (6.5-8.0) g/dL Albumin 4.3 (3.5-5.0) g/dL Beta HCG, Quant < 2 mIU/mL Radiology Impression Discussion of test interpretation with radiology: I have reviewed the radiologist's reading. Discharge Plan Discharge Clinical Impression: Constipation Patient Disposition: Home, Self-Care Instructions: Constipation (ED) Additional Instructions: All of your screening labs including all your liver function tests were normal. The ultrasound of the liver and gallbladder were normal as well. Your discomfort is secondary to the constipation. See home care instructions. You need to implement an aggressive bowel regimen, as if your preparing to have a colonoscopy. When you choose to initiate the treatment, take for fout-zlb-rjjjgnn Colace tablets. Then use MiraLax every hour until you begin having multiple large volume bowel movements. Once you clear your current stool burden, stay on a bowel regimen indefinitely. As you know, the Suboxone that you require is constipating. You may require the use of the Colace and the MiraLax daily to help maintain regularity. Follow up with your primary care provider as needed. Prescriptions: No Action omeprazole 20 mg capsule,delayed release(DR/EC) 20 mg PO BID 30 Days Qty: 60 0RF ondansetron 4 mg tablet,disintegrating 4 mg PO Q8H PRN (Reason: nausea and vomiting) Qty: 20 0RF senna 8.6 mg capsule 8.6 mg PO BEDTIME PRN (Reason: constipation) Qty: 30 0RF lactulose 10 gram/15 mL solution 20 g PO DAILY PRN (Reason: laxative effect) Qty: 1200 0RF Stand Alone Forms: Work/School Release Interventions: ED Discharge Assessment Last Done: 07/28/25 22:26 Discharge Date/Time: 07/28/25 22:27 Print Language: Kyrgyz
[2025-07-28 14:20] LABS: MANUAL DIFF FLAG NO
[2025-07-28 14:25] LABS: Hematocrit 38.8 % (37.0-47.0); Hemoglobin 13.4 g/dl (12.0-16.0); Imm Gran Abs Auto 0.02 X10*3/uL (0.00-0.03); Imm Gran Pct Auto 0.2 % (0.0-0.4); Lymphocytes Absolute Auto 2.2 X10*3/uL (1.2-4.9); Mean Corpuscular HGB Conc 34.5 g/dl (31.0-35.0); Mean Corpuscular Hemoglobin 31.7 pg (27.0-33.0); Mean Corpuscular Volume 91.7 fL (80.0-98.0); NRBC Abs Auto 0.000 X10*3/uL (0.0-0.012); NRBC Pct Auto 0.0 /100WBC (0.0-0.2); Platelet Count 276 X10*3/uL (160-400); Red Blood Count 4.23 X10*6/uL (4.20-5.50); White Blood Count 9.9 X10*3/uL (4.8-10.8)
[2025-07-28 14:38] LABS: Alanine Aminotransferase 18 U/L (0-31); Albumin Level 4.3 g/dL (3.5-5.0); Alkaline Phosphatase 59 U/L (39-117); Anion Gap 8 (12-20); Aspartate Amino Transferase 17 U/L (5-31); Blood Urea Nitrogen 8 mg/dL (9-16); Calcium 8.6 mg/dL (8.4-10.2); Carbon Dioxide 26 mmol/L (22-29); Chloride 108 mmol/L (96-108); Creatinine Clr Calc Pharmacy 69.4; Estimated Glomerular Filt Rate > 60; Magnesium 2.0 mg/dL (1.6-2.6); Potassium 4.2 mmol/L (3.3-5.1); Sodium 138 mmol/L (135-145); Total Protein 6.6 g/dL (6.5-8.0)
[2025-07-28 21:58] VITALS: BP 106/66; PULSE 94; RESP 14; TEMP 37.2; O2SAT 98
[2025-07-28 22:26] VITALS: BP 106/66; PULSE 94; RESP 14; TEMP 37.2; O2SAT 98
--- OUTSIDE RECORDS SUMMARY | 2025-07-28 23:40 | XMS_ITS | Clinical Summary ---
Author Organization [address] Address [address] [place] [address] Phone Care Team Providers Care Manager Utilization Management Name Role Phone Pcp, Does Not Have [...] 0.6 oz pur e alcohol) regular use [facility] Utilities Answer Date Recorded In the past [...] 5:39 AM EST HIV-1/HIV-2 ANTIBODY/ANTIGEN SCREEN W/REFLEX ([facility]) STAT 01/29/2024 12:37 PM EDT CHLAMYDIA TRACHOMATIS, NAAT (LAB ORDER ONLY) ([facility]) Routine 04/20/2020 10:22 AM EDT Abnormal uterine bleeding (AUB) from Last 3 Months or Most Recently Relevant to Health Maintenance Results * Hepatitis C Ab with reflex to HCV PCR (06/22/2024 5:39 AM EST) Hepatitis C Antibody Negative Negative 06/22/2024 10:39 AM EST [facility] DEPARTMENT OF LABORATORY MEDICINE Comment:A negative result [...] GUEVARA LAB BLOOD ORDERABLES Final Re sult [facility] DEPARTMENT OF LABORATORY MEDICINE [address] [place] [address], [facility] [phone] * Automated HIV-1/HIV-2 antibody/antigen screen w/reflex ([facility]) (01/29/2024 12:37 PM EDT) HIV 1 and 2 Antibody/Antigen Screen Negative Negative 01/29/2024 8:10 PM EDT [facility] DEPARTMENT OF LABORATORY MEDICINE Comment:Interpretation: This specimen [...] MD LAB BLOOD ORDERABLES Final Resul t [facility] DEPARTMENT OF LABORATORY MEDICINE [address] [place] [address] * Chlamydia trachomatis, NAAT ([facility]) (04/20/2020 10:22 AM EDT) Chlamydia DNA Probe Negative Negative 04/21/2020 12:22 PM EDT [facility] DEPARTMENT OF PATHOLOGY Comment:The Aptima Combo2 As say is not intended for the evaluation of suspected sexual abuse or for other medico-legal indications. Culture URINE SPECIMEN / Unknown Collection / Unknown 04/20/2020 10:22 AM EDT 04/20/2020 5:34 PM EDT us Yue Couch MD MICROBIOLOGY - GENERAL [place] Final Result [facility] DEPARTMENT OF PATHOLOGY [address] [place] [address] from Last 3 Months or Most Recently Relevant to Health Maintenance [place] [address] [place] [address] [place] [address] [place] [address] [place] [address] [place] [address] [place] [address] [place] [place] [address] [place] [address] [place] [address] [employer] Member Subscriber Plan / Payer (Ef fective 2017-Present) Name:Ruthann Bah Relation to Subscriber:Child Name:LANDON BAH (Home) Address: [address] [place] [address] [place] [address] Payer ID:[id number] Type:Not on file Address: [place] [phone] [employer] Advance Directives * Full Code (Latest Code Status on File) Date Activated Date Inactivated Comments 06/20/2024 6:55 PM 06/22/2024 1:29 PM Question Answer Comments With Whom was the Code Status Discussed? Patient Care Teams Manager Utilization Management Relationship Specialty Start Date End Date Pcp, Does Not Have A PCP - General 02/09/24
--- OUTSIDE RECORDS SUMMARY | 2025-07-28 23:43 | XMS_ITS | Clinical Summary ---
Author Organization [facility] Address [address] [place] [address] Care Team Providers Care Door Puller Name Role Phone Unavailable Primary Care Provider [...] Date/Time Associated Diagnosis Comments THINPREP PAP TEST (AIR SAMPLING AND MONITORING) WITH HPV REFLEX, GC/CT Routine 12/16/2023 12:00 AM EDT from Last 3 Months or Most Recently Relevant to Health Maintenance Results * (ABNORMAL) ThinPrep Pap Test ([employer] Officer) with HPV Reflex, GC/CT (12/16/2023 12:00 AM [...] Endocervix Previous Pap Date: NG CPT Codes: 19300, 87757 ICD Codes: Z12.4 12/16/2023 12/17/2023 4:1 8 AM EDT us Rose Danielsmartina CNM LAB AMB PATH/CYTO ORDERABLES Final Result Performing Organization Address City/State/[facility] Co de Phone Number [facility] [address], [place] from Last 3 Months or Most Recently Relevant to Health Maintenance [place] [address] [facility]
--- OUTSIDE RECORDS SUMMARY | 2025-07-28 23:43 | XMS_ITS | Clinical Summary ---
Author Organization [facility] Address [address] [place] [id number] Care Team Providers Care [facility] Name Role Phone Md, Unknown Primary Care [...] age to complete this topic Care Teams [facility] Relationship Specialty Start Date End Date , Unknown 1 Dont Change PCP - General 10/14/22
== END 2025-07-28 22:27 | disposition home or self-care (01) ==
PROVIDERS: Physician Assistant Medical; Emergency Provider Emergency Medicine; PCP Family Medicine
DX: K59.00 Constipation, unspecified (principal); R10.23 Pelvic and perineal pain bilateral
CPT/HCPCS: 36415; 76705; 80048; 80076; 83735; 84702; 85025; 99282; 99284

== ENCOUNTER → 2025-07-28 14:02 | Outpatient (BNV) | payer OTHER, SELFPAY | PROVIDERS: PCP Family Medicine; Visit Provider Radiology Diagnostic Radiology | DX: R10.11 Right upper quadrant pain (principal) | CPT/HCPCS: 76705 ==